=== PATIENT | female | born 1935 | race Caucasian/White ===

== ENCOUNTER 2021-06-29 17:22 | Emergency (ER) | payer MEDICARE ==
[2021-06-30 05:50] LABS: HCT 27.2 % (37.0-47.0); HGB 8.5 g/dL (12.5-16.0)
== END 2021-06-30 07:04 | disposition home or self-care (01) ==
LOC: FER 17:22
PROVIDERS: Emergency Medicine Emergency Medical Services
DX: D50.0 Iron deficiency anemia secondary to blood loss (chronic) (principal); I50.9 Heart failure, unspecified; J44.9 Chronic obstructive pulmonary disease, unspecified; Z87.891 Personal history of nicotine dependence
CPT/HCPCS: 36415; 36430; 80053; 80061; 82728; 83540; 83550; 84443; 85014; 85018; 85025; 86850; 86900; 86901; 86922; 94640; J1200; J1940; J7050; P9016